=== PATIENT | female | born 1985 | race African-American/Black ===

== ENCOUNTER 2020-02-20 21:14 | Emergency (ER) | payer OTHER ==
[~2020-02-20] VITALS: Ht 154.9 cm; Wt 56.7 kg
[2020-02-20 21:15] VITALS: BP 114/72
--- NOTE | 2020-02-21 11:21 | EKG ---
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1985 Requested By: Travis Genao Order Number: [id number] MD: Mustapha Huang Measurements Intervals [place] Rate: 82 P: 76 [place]: 147 QRS: 73 QRSD: 79 T: 64 QT: 382 QTc: 446 Interpretive Statements Sinus rhythm Probable left atrial enlargement Poor R wave progression V1-2, possible lead placement No previous ECG available for comparison Electronically Signed On 02-21-2020 11:21:38 CDT by Mustapha Huang [email or web address] <ELECTRONICALLY SIGNED> By: Mustapha Huang MD, FACC 02/21/20 1121 29 29 Mustapha Huang MD, [facility] /EPI
== END 2020-02-20 21:46 | disposition home or self-care (01) ==
LOC: ER 21:14
DX: M79.10 Myalgia, unspecified site (principal); F17.210 Nicotine dependence, cigarettes, uncomplicated